=== PATIENT | male | born 1985 | race Caucasian/White ===

== ENCOUNTER 2018-12-11 16:17 | Emergency (ER) | payer MEDICAID ==
[2018-12-11] MEDS: LIDOCAINE 1% (MDV) 20 ML INJ SC (17:07)
[2018-12-11] MEDS: DIPHTH/TET/ACEL PERTUSS (ADULT) 0.5 ML VIAL IM* (17:07)
[2018-12-11] MEDS: BUPIVACAINE 0.25% (MPF) 30 ML INJ INJ (17:07)
[2018-12-11] MEDS: CEFAZOLIN 1 GM INJ IM (18:51)
[2018-12-11] MEDS: LIDOCAINE 1% (MPF) 5 ML VIAL INFIL (18:56)
== END 2018-12-11 19:20 | disposition home or self-care (01) ==
LOC: FTE 19:20
DX: S62.632A Displaced fracture of distal phalanx of right middle finger, initial encounter for closed fracture (principal); S62.634A Displaced fracture of distal phalanx of right ring finger, initial encounter for closed fracture; S62.636A Displaced fracture of distal phalanx of right little finger, initial encounter for closed fracture; W20.8XXA Other cause of strike by thrown, projected or falling object, initial encounter; Y92.89 Other specified places as the place of occurrence of the external cause; Z23 Encounter for immunization
CPT/HCPCS: 12002; 73130-RT; 90471; 90715; 96372; 99284-25

== ENCOUNTER 2018-12-13 10:09 | Emergency (ER) | payer MEDICAID | END 2018-12-13 12:10 | disposition home or self-care (01) | LOC: FTE 10:09 | DX: Z48.01 Encounter for change or removal of surgical wound dressing (principal) | CPT/HCPCS: 99281; Z7502 ==

== ENCOUNTER 2018-12-15 10:16 | Emergency (ER) | payer MEDICAID | END 2018-12-15 13:15 | disposition home or self-care (01) | LOC: FTE 10:16 | DX: S62.632A Displaced fracture of distal phalanx of right middle finger, initial encounter for closed fracture (principal); S61.411A Laceration without foreign body of right hand, initial encounter; W23.0XXA Caught, crushed, jammed, or pinched between moving objects, initial encounter; Y92.9 Unspecified place or not applicable | CPT/HCPCS: 29125; 99283-25 ==

== ENCOUNTER 2018-12-19 10:17 | Emergency (ER) | payer MEDICAID | END 2018-12-19 12:25 | disposition home or self-care (01) | LOC: E/R 10:17 | DX: Z48.02 Encounter for removal of sutures (principal) | CPT/HCPCS: 99281; Z7502 ==